=== PATIENT | female | born 1970 | race Hispanic/Latino ===

== ENCOUNTER 2018-11-10 12:56 | Emergency (ER) | payer OTHER ==
--- NOTE | 2018-11-10 16:08 | RAD REPORT ---
EXAM DESCRIPTION: RAD - Chest Pa And Lat (2 Views) - 11/10/2018 4:00 pm CLINICAL HISTORY: Congestion;Cough Chest pain. COMPARISON: No comparisons FINDINGS: The lungs are clear. The heart is normal in size. No displaced fractures. IMPRESSION: No acute or concerning finding suspected.
[2018-11-10] MEDS ORDERED: FAMOTIDINE 20 MG TAB ONE (16:33)
[2018-11-10] MEDS ORDERED: HYDROCODONE/CHLORPHEN 5 ML/OSYR ONE (16:33)
[2018-11-10] MEDS ORDERED: predniSONE 20 MG TAB ONE (16:33)
--- NOTE | 2018-11-10 17:09 | ER ---
Nurse's Notes [facility] Name: Edilia Frazier Age: 48 yrs Sex: Female : 1970 Arrival Date: 11/10/2018 Time: 12:59 Bed 15 Private MD: Rachelle Cullen H Diagnosis: Acute bronchitis, unspecified Presentation: 11/10 13:14 Presenting complaint: Patient states: "I started with a cough about 2 weeks ago and aa5 went to urgent care and they gave me a shot and a z-pack and on I saw Luna Godfrey and she gave me another shot and prescribed me an inhaler, cefdinir, and loratadine". Pt c/o pain to right lower rib cage with cough. Transition of care: patient was not received from another setting of care. Onset of symptoms was October 2018. Risk Assessment: Do you want to hurt yourself or someone else? Patient reports no desire to harm self or others. Initial Sepsis Screen: Does the patient meet any 2 criteria? No. Patient's initial sepsis screen is negative. Does the patient have a suspected source of infection? No. Patient's initial sepsis screen is negative. Care prior to arrival: None. 13:14 Method Of Arrival: Ambulatory aa5 13:14 Acuity: OZ 3 aa5 CLINICAL SUPPORT TECH: 13:17 LMP N/A - Post-menopause aa5 Historical: - Allergies: 13:16 No Known Allergies; aa5 - PMHx: 13:16 None; aa5 - PSHx: 13:16 Cholecystectomy; ; Tubal ligation; left arm; aa5 - Immunization history:: Flu vaccine is not up to date. - Social history:: Smoking status: Patient/guardian denies using tobacco. - Ebola Screening: : No symptoms or risks identified at this time. Screenin:54 Abuse screen: Denies threats or abuse. Denies injuries from another. Nutritional jl7 screening: No deficits noted. Tuberculosis screening: No symptoms or risk factors identified. Fall Risk None identified. Assessment: 15:00 General: Appears in no apparent distress. uncomfortable, Behavior is calm, cooperative, jl7 appropriate for age. Pain: Denies pain. Neuro: Level of Consciousness is awake, alert, obeys commands, Oriented to person, place, time, situation. Cardiovascular: Patient's skin is warm and dry. Respiratory: Airway is patent Respiratory effort is even, unlabored, Respiratory pattern is regular, symmetrical, Breath sounds are clear bilaterally. Derm: Skin is pink, warm \\T\\ dry. 16:00 Reassessment: Patient appears in no apparent distress at this time. No changes from jl7 previously documented assessment. Patient and/or family updated on plan of care and expected duration. Pain level reassessed. Patient is alert, oriented x 3, equal unlabored respirations, skin warm/dry/pink. Vital Signs: 13:16 BP 180 / 85; Pulse 94; Resp 18 S; Temp 98.3(TE); Pulse Ox 97% on R/A; Weight 88.45 kg aa5 (R); Height 5 ft. 3 in. (160.02 cm) (R); 16:54 BP 177 / 91; Pulse 91; Resp 16 S; Pulse Ox 98% on R/A; jl7 13:16 Body Mass Index 34.54 (88.45 kg, 160.02 cm) aa5 ED Course: 12:59 Patient arrived in ED. mr 12:59 Rachelle Cullen DO is Private Physician. mr 13:14 Arm band placed on. aa5 13:16 Triage completed. aa5 14:45 Florencio Stone, GUERA is Primary Nurse. jl7 15:09 Tina Hopkins FNP-C is PHCP. snw 15:09 Santos Britton MD is Attending Physician. snw 16:00 Chest Pa And Lat (2 Views) XRAY In Process Unspecified. EDMS 16:54 Patient has correct armband on for positive identification. Bed in low position. Call jl7 light in reach. Side rails up X 1. Pulse ox on. NIBP on. 17:08 Rachelle Cullen DO is Referral Physician. snw 17:21 No provider procedures requiring assistance completed. Patient did not have IV access jl during this emergency room visit. Administered Medications: 06:23 Drug: Tussionex Pennkinetic ER 5 ml Route: PO; jl7 17:20 Follow up: Response: No adverse reaction jl7 16:22 Drug: predniSONE 40 mg Route: PO; jl7 17:21 Follow up: Response: No adverse reaction jl7 16:22 Drug: Pepcid 20 mg Route: PO; jl7 17:21 Follow up: Response: No adverse reaction jl7 Outcome: 17:08 Discharge ordered by MD. wylie 17:20 Discharged to home ambulatory. jl7 17:20 Condition: stable 17:20 Discharge instructions given to patient, family, Instructed on discharge instructions, follow up and referral plans. medication usage, Demonstrated understanding of instructions, follow-up care, medications, Prescriptions given X 2. 17:21 Patient left the ED. jl7 Signatures: Dispatcher [employer] EDMS Tina Hopkins, SOLUTIONS CONSULTANT-C SOLUTIONS CONSULTANT-Csnw BrendanBrynn mr LyleNikki, RN RN aa5 Florencio Stone RN RN jl7
--- NOTE | 2018-11-10 17:09 | EDPHYS ---
Physician Documentation [facility] Name: Edilia Frazier Age: 48 yrs Sex: Female : 1970 Arrival Date: 11/10/2018 Time: 12:59 Bed 15 Private MD: Rachelle Cullen H ED Physician Santos Britton HPI: 11/10 16:24 This 48 yrs old Female presents to ER via Ambulatory with complaints of Cough, snw Chest Congestion. 16:24 The patient or guardian reports airway noise, cough, hoarse voice. Onset: The snw symptoms/episode began/occurred gradually, 3 week(s) ago, and became persistent. Severity of symptoms: At their worst the symptoms were moderate, severe. Modifying factors: The symptoms are alleviated by nothing. Associated signs and symptoms: The patient has no apparent associated signs or symptoms. It is unknown whether or not the patient has had similar symptoms in the past. The patient has been recently seen by a physician: seen x 2. Each visit pt was given shot of steroids and antibiotics. Neb tx. 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 - Social history:: Smoking status: Patient/guardian denies using tobacco. - Ebola Screening: : No symptoms or risks identified at this time. ROS: 16:23 Constitutional: Negative for fever, chills, and weight loss, Eyes: Negative for injury, snw pain, redness, and discharge, ENT: Negative for injury, pain, and discharge, Neck: Negative for injury, pain, and swelling, Cardiovascular: Negative for chest pain, palpitations, and edema, Abdomen/GI: Negative for abdominal pain, nausea, vomiting, diarrhea, and constipation, Back: Negative for injury and pain, : Negative for injury, bleeding, discharge, and swelling, MS/Extremity: Negative for injury and deformity, Skin: Negative for injury, rash, and discoloration, Neuro: Negative for headache, weakness, numbness, tingling, and seizure. 16:23 Respiratory: Positive for cough, pleurisy, of the right lateral anterior chest. Exam: 16:23 Constitutional: This is a well developed, well nourished patient who is awake, alert, snw and in no acute distress. Head/Face: Normocephalic, atraumatic. Eyes: Pupils equal round and reactive to light, extra-ocular motions intact. Lids and lashes normal. Conjunctiva and sclera are non-icteric and not injected. Cornea within normal limits. Periorbital areas with no swelling, redness, or edema. ENT: Nares patent. No nasal discharge, no septal abnormalities noted. Tympanic membranes are normal and external auditory canals are clear. Oropharynx with no redness, swelling, or masses, exudates, or evidence of obstruction, uvula midline. Mucous membranes moist. Neck: Trachea midline, no thyromegaly or masses palpated, and no cervical lymphadenopathy. Supple, full range of motion without nuchal rigidity, or vertebral point tenderness. No Meningismus. Chest/axilla: Normal chest wall appearance and motion. Nontender with no deformity. No lesions are appreciated. Cardiovascular: Regular rate and rhythm with a normal S1 and S2. No gallops, murmurs, or rubs. Normal PMI, no JVD. No pulse deficits. 16:23 Abdomen/GI: Soft, non-tender, with normal bowel sounds. No distension or tympany. No guarding or rebound. No evidence of tenderness throughout. Back: No spinal tenderness. No costovertebral tenderness. Full range of motion. Skin: Warm, dry with normal turgor. Normal color with no rashes, no lesions, and no evidence of cellulitis. MS/ Extremity: Pulses equal, no cyanosis. Neurovascular intact. Full, normal range of motion. Neuro: Awake and alert, GCS 15, oriented to person, place, time, and situation. Cranial nerves II-XII grossly intact. Motor strength 5/5 in all extremities. Sensory grossly intact. Cerebellar exam normal. Normal gait. Psych: Awake, alert, with orientation to person, place and time. Behavior, mood, and affect are within normal limits. 16:23 Respiratory: the patient does not display signs of respiratory distress, Respirations: shallow respirations, tachypnea, Breath sounds: bronchial sounds, bronchitic cough. Vital Signs: 13:16 BP 180 / 85; Pulse 94; Resp 18 S; Temp 98.3(TE); Pulse Ox 97% on R/A; Weight 88.45 kg aa5 (R); Height 5 ft. 3 in. (160.02 cm) (R); 16:54 BP 177 / 91; Pulse 91; Resp 16 S; Pulse Ox 98% on R/A; jl7 13:16 Body Mass Index 34.54 (88.45 kg, 160.02 cm) aa5 MDM: 15:09 Patient medically screened. snw 17:09 Data reviewed: vital signs, nurses notes. Data interpreted: Pulse oximetry: on room air snw is 98 %. Interpretation: normal. Counseling: I had a detailed discussion with the patient and/or guardian regarding: the historical points, exam findings, and any diagnostic results supporting the discharge/admit diagnosis, radiology results, the need for outpatient follow up, to return to the emergency department if symptoms worsen or persist or if there are any questions or concerns that arise at home. Special discussion: I have referred the patient to see his PCP for further evaluation of high blood pressure. Based on the history and exam findings, there is no indication for further emergent testing or inpatient evaluation. I discussed with the patient/guardian the need to see the primary care provider for further evaluation of the symptoms. 11/10 15:12 Order name: Chest Pa And Lat (2 Views) XRAY; Complete Time: 16:12 snw Administered Medications: 06:23 Drug: Tussionex Pennkinetic ER 5 ml Route: PO; jl7 17:20 Follow up: Response: No adverse reaction jl7 16:22 Drug: predniSONE 40 mg Route: PO; jl7 17:21 Follow up: Response: No adverse reaction jl7 16:22 Drug: Pepcid 20 mg Route: PO; jl7 17:21 Follow up: Response: No adverse reaction jl7 Disposition: 17:45 Co-signature as Attending Physician, Santos Britton MD I agree with the assessment and kdr plan of care. Disposition: 11/10/18 17:08 Discharged to Home. Impression: Acute bronchitis, unspecified. - Condition is Stable. - Discharge Instructions: Acute Bronchitis, Adult, Hypertension, Cough, Adult, Rehydration, Adult. - Prescriptions for Tessalon Perles 100 mg Oral Capsule - take 1 capsule by ORAL route every 8 hours As needed; 15 capsule. Prednisone 20 mg Oral Tablet - take 2 tablet by ORAL route once daily for 5 days; 10 tablet. - Work release form, Medication Reconciliation Form, Thank You Letter, Antibiotic Education, Prescription Opioid Use form. - Follow up: Rachelle Cullen DO; When: 7 - 10 days; Reason: Recheck today's complaints, Continuance of care, Re-evaluation by your physician. Follow up: Emergency Department; When: As needed; Reason: Worsening of condition. Signatures: Dispatcher [employer] EDMS Santos Britton MD MD [facility] Tina Hopkins, GRAVEL MACHINE OPERATOR-C GRAVEL MACHINE OPERATOR-Csnw Nikki Lyle, RN RN aa5 Florencio Stone RN RN jl7 Corrections: (The following items were deleted from the chart) 17:21 17:08 11/10/2018 17:08 Discharged to Home. Impression: Acute bronchitis, unspecified. jl7 Condition is Stable. Forms are Medication Reconciliation Form, Thank You Letter, Antibiotic Education, Prescription Opioid Use. Follow up: Rachelle Cullen; When: 7 - 10 days; Reason: Recheck today's complaints, Continuance of care, Re-evaluation by your physician. Follow up: Emergency Department; When: As needed; Reason: Worsening of condition. snw
== END 2018-11-10 17:21 | disposition home or self-care (01) ==
LOC: ER 12:56
DX: J20.9 Acute bronchitis, unspecified (principal)
CPT/HCPCS: 71046; 99284; J7512